=== PATIENT | female | born 1955 | race Caucasian/White ===

== ENCOUNTER 2017-04-29 14:18 | Day surgery (SDC) | payer BC ==
[~2017-04-29] VITALS: Ht 170.2 cm; Wt 104.9 kg
[~2017-04-29 14:18] MED LIST: ULTRAM50 MG PO
[2017-04-29 15:10] LABS: ADD MIUA? YES; BILIRUBIN NEGATIVE; BLOOD SMALL; COLOR YELLOW ((YELLOW)); GLUCOSE (STRIP) NEGATIVE; KETONES NEGATIVE; LEUKOCYTES NEGATIVE; NITRITE NEGATIVE; PROTEIN (STRIP) 100; SPECIFIC GRAVITY 1.016 (1.000-1.030); UROBILINOGEN 0.2 MG/DL (0.2-1.0)
[2017-04-29 15:24] LABS: EPITHELIAL CELLS RARE /HPF; MUCUS 1+ /LPF; RED BLOOD CELLS RARE /HPF (0-5); WHITE BLOOD CELLS RARE /HPF (0-5)
[2017-04-29 15:25] LABS: AMORPHOUS URATES CRYSTALS 1+; BACTERIA NONE SEEN /HPF; CASTS PRESENT /LPF; CRYSTALS PRESENT; HYALINE CASTS 0-5 /LPF; UCUL ADDED? NO
[2017-04-29 15:27] LABS: EOSINOPHIL (%) 1.2 % (0-5); EOSINOPHIL COUNT 0.1 K/uL (0-0.3); HEMATOCRIT 39.3 % (36.0-46.0); IMMATURE GRANULOCYTE (%) 0.4 % (0.0-0.7); LYMPHOCYTE COUNT 1.1 K/uL (1.0-2.8); MCH 33.2 PG (29.0-34.0); MCHC 34.6 G/DL (30.0-36.0); MCV 95.9 FL (83-99); MEAN PLAT.VOLUME 9.3 uM^3 (9.5-12.4); MONOCYTE (%) 6.9 % (3-12); MONOCYTE COUNT 0.7 K/uL (0-0.8); NEUTROPHIL (%) 80.1 % (45-76); PLATELET COUNT 150 K/uL (156-360); RBC DIS.WIDTH-CV 13.2 % (11.8-14.6); RBC DIS.WIDTH-SD 46.7 % (39-53); WHITE BLOOD COUNT 9.9 K/uL (4.1-10.2)
[2017-04-29 15:35] LABS: CHLORIDE 109 mEq/L (99-109); POTASSIUM 3.6 mEq/L (3.7-5.4); SODIUM 143 mEq/L (136-147)
[2017-04-29 15:37] LABS: GLUCOSE 111 mg/dL (70-99)
[2017-04-29 15:39] LABS: ANION GAP 13 MEQ/L (2-14); TOTAL BILIRUBIN 0.7 mg/dL (0.0-1.0)
[2017-04-29 15:41] LABS: ALKALINE PHOSPHATASE 44 IU/L (3-129); GFR ESTIMATE (CALCULATED) 30 mL/min/
[2017-04-29 15:42] LABS: UREA NITROGEN (BUN) 30 mg/dL (9-23)
[2017-04-29 15:44] LABS: LIPASE 38 U/L (1.0-51.0)
[2017-04-29] MEDS ORDERED: METOPROLOL TART25 MG PO (16:11)
[2017-04-29] MEDS ORDERED: ATACAND4 MG PO (16:17)
[2017-04-29] MEDS ORDERED: VALACYCLOVIR500 MG PO (16:17)
[2017-04-29] MEDS ORDERED: CALCIUM 600 +1 EAC2 PO (16:18)
[2017-04-29] MEDS ORDERED: MEDROL4 MG PO (16:18)
[2017-04-29] MEDS ORDERED: PRILOSEC20 MG PO (16:18)
[2017-04-29] MEDS ORDERED: SUPER MULTIVIT1 EACH PO (16:18)
[2017-04-29] MEDS ORDERED: ZOCOR40 MG PO (16:18)
[2017-04-29] MEDS ORDERED: ASCORBIC ACID250 MG PO (16:19)
[2017-04-29] MEDS ORDERED: FISH OIL 1,2001 EAC4 PO (16:19)
[2017-04-29] MEDS ORDERED: LO-DOSE ASPIRIN81 M2 PO (16:19)
[2017-04-29] MEDS ORDERED: ZETIA10 MG PO (16:19)
[2017-04-29] MEDS ORDERED: PROLIA60 MG/1 ML SC (16:20)
[2017-04-29 23:03] VITALS: BP 114/59
[2017-04-30 03:33] VITALS: BP 112/56
[2017-04-30 08:00] VITALS: BP 125/69
[2017-04-30] MEDS ORDERED: NORCO 5/3251 TABLET PO (08:34)
== END 2017-04-30 10:35 | disposition home or self-care (01) ==
LOC: EME 14:18 → ENRESERV 18:48 → SDC 20:59 → EME 20:59 → 2SOUTH 22:24 → 2EAST 23:00
PROVIDERS: Emergency Medicine
DX: K35.80 Unspecified acute appendicitis (principal); K43.2 Incisional hernia without obstruction or gangrene; K66.0 Peritoneal adhesions (postprocedural) (postinfection); Z90.49 Acquired absence of other specified parts of digestive tract; C64.2 Malignant neoplasm of left kidney, except renal pelvis; N05.1 Unspecified nephritic syndrome with focal and segmental glomerular lesions; Z87.442 Personal history of urinary calculi; Z86.711 Personal history of pulmonary embolism; Z86.718 Personal history of other venous thrombosis and embolism; E78.5 Hyperlipidemia, unspecified; M81.0 Age-related osteoporosis without current pathological fracture; Z79.82 Long term (current) use of aspirin; Z79.899 Other long term (current) drug therapy; Z86.19 Personal history of other infectious and parasitic diseases; Z90.710 Acquired absence of both cervix and uterus
CPT/HCPCS: 74176; 80053; 81003; 83690; 85025; 88304; 93005; 99281; 99285; G0378; J0131; J0330; J2270; J2370; J2405; J2710; J3010; J7120; J7509; S0020